=== PATIENT | female | born 1940 | race Caucasian/White ===

== ENCOUNTER → 2016-04-05 | Outpatient (CLI) | payer MEDICARE, OTHER | LOC: GMAM 11:07 | PROVIDERS: ATTEND Family Medicine | DX: R21 Rash and other nonspecific skin eruption (principal) ==

== ENCOUNTER → 2016-11-14 | Outpatient (CLI) | payer MEDICARE, OTHER | LOC: GMAM 14:52 | PROVIDERS: ATTEND Physician Assistant | DX: J30.9 Allergic rhinitis, unspecified (principal) ==

== ENCOUNTER → 2017-07-15 | Outpatient (CLI) | payer OTHER ==
--- NOTE | 2017-07-15 13:13 | US ---
THYROID ULTRASOUND CLINICAL INFORMATION: Thyroid nodule TECHNIQUE: Thyroid sonography was performed. COMPARISON: None FINDINGS: Thyroid size: Right thyroid lobe measures 1.2 x 1.8 x 4.4 cm. Thyroid isthmus measures 2 mm in thickness. Left thyroid lobe measures 1.2 x 1.5 x 3.7 cm. Texture: Hypoechoic inhomogeneous coarse texture Estimated total number of nodules >/=1 cm: 3 Nodules Right There is a right thyroid nodule which measures 1.9 x 0.9 x 1 cm. This is sonographically solid without definite internal calcifications. A nodule of this size should be further evaluated with sono guided fine-needle aspiration biopsy. A second nodule in the mid right thyroid lobe measures 0.9 x 0.5 x 0.8 cm. A nodule of this size does not require biopsy. Left Upper left thyroid nodule with internal cystic changes measures 1.1 cm in greatest dimension by 0.6 x 0.9 cm and at this size no further imaging is needed. A 1.3 x 0.7 x 0.6 cm nodule seen in the posterior aspect the left thyroid lobe. At this size, one might consider follow-up sonography in one to two years with biopsy if nodule develops internal microcalcifications or enlarges to size greater than 1.5 cm. IMPRESSION: Bilateral thyroid nodules. The largest on the right measures 1.9 cm and further evaluation with fine-needle aspiration biopsy is recommended. Electronically signed by: Cruz Arriola MD 07/15/2017 1:12 PM CDT
== END ==
LOC: US 11:00
PROVIDERS: ATTEND Family Medicine
DX: E04.1 Nontoxic single thyroid nodule (principal)

== ENCOUNTER → 2017-10-09 | Outpatient (CLI) | payer OTHER ==
--- NOTE | 2017-10-11 10:46 | MAM ---
EXAM DESCRIPTION: 3D Screening BILATERAL : Digital Mammography. CLINICAL HISTORY: 77 years Female SCREENING . No complaints. Remote family history of breast cancer. Childbirth. Postmenopausal. Has taken hormone replacement 5 or more years ago. COMPARISON: 2-D digital screening bilateral study 07/12/2010.. No prior reports available. TECHNIQUE: Bilateral CC and MLO projection full-field images, 3-D tomosynthesis digital mammographic technique. CAD not utilized. FINDINGS: The breast parenchymal density pattern is: Heterogeneously dense breast tissue, which may obscure small masses. No skin thickening or nipple retraction. Bilateral accessory axillary breast tissue. Bilateral solitary microcalcifications and coarse calcifications. Benign calcifications have increased since the prior study.. No new focal, stellate mass or density, focal asymmetry , and no suspicious microcalcifications bilaterally. Stable mammograms compared to prior study, except for increasing calcifications, and taking into account differences in mammographic technique. IMPRESSION: BI-RADS CATEGORY: 2 - BENIGN FINDINGS. FOLLOW UP: Routine digital bilateral screening, one year interval from October 2017. Written communication explaining the IMPRESSION and follow-up, will be mailed to the patient and referring health care provider. According to the [employer], yearly mammograms are recommended starting at age 40 and continuing as long as a woman is in good health. Any breast change noted on a breast self-exam should be reported promptly to the patient's healthcare provider. Breast MRI is recommended for women with an approximately 20-25% or greater lifetime risk of breast cancer, including women with a strong family history of breast or ovarian cancer and women who have been treated for Hodgkin's disease. A negative mammographic report should not delay tissue diagnosis in patients with significant clinical history or physical findings. Extremely dense breast tissue limits the sensitivity of digital mammography. Electronically signed by: Aguila Momin MD 10/11/2017 10:45 AM CDT
== END ==
LOC: MAMMO 10:00
PROVIDERS: ATTEND Family Medicine
DX: Z12.31 Encounter for screening mammogram for malignant neoplasm of breast (principal)

== ENCOUNTER → 2019-01-15 | Outpatient (CLI) | payer OTHER | LOC: GMAM 14:15 | PROVIDERS: ATTEND Family Medicine | DX: E04.1 Nontoxic single thyroid nodule (principal); I10 Essential (primary) hypertension; E78.2 Mixed hyperlipidemia ==

== ENCOUNTER → 2020-02-01 | Outpatient (CLI) | payer OTHER | LOC: GMAM 14:00 | PROVIDERS: ATTEND Family Medicine | DX: E04.1 Nontoxic single thyroid nodule (principal); I10 Essential (primary) hypertension; E78.2 Mixed hyperlipidemia ==